=== PATIENT | female | born 1975 | race American Indian/Alaskan Native ===

== ENCOUNTER 2018-05-05 15:48 | Outpatient (CLI) | payer OTHER ==
[2018-05-05 17:44] VITALS: BP 95/54
--- NOTE | 2018-05-05 18:22 | Ultrasound Report ---
FINAL REPORT PROCEDURE: US OB LIMITED TECHNIQUE: Real-time limited sonographic examination was performed for evaluation of size, position, heartbeat, fluid volume for fetus with image documentation. HISTORY: well being KARSETN, position, deceleration. COMPARISON: Biophysical profile done same day and time on separate report. FINDINGS: MATERNAL LMP: 08/01/2017. Clinical age: 39 weeks 4 days. EDC: 05/08/2018. FETUS IUP: Single living intrauterine . Position: Cephalic. Amniotic fluid volume: 13.5 cm. Heart rate and rhythm: 158 BPM, regular. IMPRESSION: 1. Single living intrauterine gestation, by LMP 39 weeks 4 days with EDC of 05/08/2018. Cephalic position. KARSTEN is normal at 13.5 cm. heart rate 158 beats per minute.
--- NOTE | 2018-05-05 18:23 | Ultrasound Report ---
FINAL REPORT PROCEDURE: US OB BPP WO NON-STRESS TECHNIQUE: Sonographic evaluation for breathing, movement, tone, and amniotic fluid volume was performed. CPT 69719 HISTORY: well being, KARSTEN, position, decelerations. COMPARISON: Limited obstetric ultrasound dated same day and time on separate report. FINDINGS: MATERNAL LMP: 08/01/2017. Clinical age: 39 weeks 4 days. EDC: 05/08/2018. FETUS IUP: Single living intrauterine . Position: Cephalic. Amniotic fluid volume: 13.5 cm. Heart rate and rhythm: 158 BPM, regular. Amniotic fluid volume: Normal-score 2. At least one vertical pocket > 2 cm or more in vertical axis. breathing: Normal-score 2. movement: Normal-score 2. tone: Normal. Score: 8 of 8. IMPRESSION: Normal biophysical profile.
== END 2018-05-05 17:20 | disposition home or self-care (01) ==
LOC: TRG 15:48
PROVIDERS: ATTEND Obstetrics & Gynecology
DX: O47.1 False labor at or after 37 completed weeks of gestation (principal); Z3A.39 39 weeks gestation of pregnancy
CPT/HCPCS: 59025; 76815; 76819

== ENCOUNTER 2018-05-08 06:08 | Outpatient (CLI) | payer OTHER ==
--- NOTE | 2018-05-08 08:23 | Ultrasound Report ---
ULTRASOUND OB LIMITED History: presentation Technique: Transabdominal ultrasound with Doppler interrogation. Gestation: Single Position: Cephalic Heart Rate: 136 BPM Cervical length: The internal cervical os is dilated up to 1.9 cm.
== END 2018-05-08 08:40 | disposition home or self-care (01) ==
LOC: TRG 06:08
PROVIDERS: ATTEND Obstetrics & Gynecology
DX: O46.93 Antepartum hemorrhage, unspecified, third trimester (principal); O62.9 Abnormality of forces of labor, unspecified; Z3A.40 40 weeks gestation of pregnancy
CPT/HCPCS: 59025; 76815

== ENCOUNTER 2018-05-09 02:36 | Inpatient (IN) | payer OTHER ==
[2018-05-09] MEDS ORDERED: LACTATED RINGERS 1,000 ML ONE (03:25)
[2018-05-09] MEDS ORDERED: POLYCILLIN/NS 2 GM/100 ML 2 GM/100 ML BAG IV ONE (03:26)
[2018-05-09] MEDS ORDERED: BRETHINE SUB-Q PRN (03:26)
[2018-05-09] MEDS ORDERED: ePHEDrine SULFATE IV PRN (03:26)
[2018-05-09] MEDS ORDERED: XYLOCAINE 2% INFILTRATI ONE (03:26)
[2018-05-09] MEDS ORDERED: SUBLIMAZE IV PRN (03:26)
[2018-05-09 03:38] LABS: Hematocrit 42.5 % (30.3-42.9); Hemoglobin 14.5 gm/dl (10.1-14.3); Mean Corpuscular HGB Conc 34 % (30-34); Mean Corpuscular Hemoglobin 31 pg (28-32); Mean Corpuscular Volume 91 fl (79-97); Platelet Count 127 K/mm3 (140-440); Red Blood Count 4.66 M/mm3 (3.65-5.03); Red Cell Distribution Width 14.6 % (13.2-15.2)
--- NOTE | 2018-05-09 03:41 | History and Physical Report ---
History of Present Illness Date of examination: 05/09/18 Date of admission: 05/09/18 02:52 Chief complaint: Regular contractions History of present illness: 42 year old female presents to L&D with regular contractions. Patient states her contractions began at 4:00 PM today. Patient reports leaking of clear fluid from vagina which she states began within the past hour. Patient denies vaginal bleeding. Patient reports active movement. No records are available. Patient is a [place] patient. Patient states she has had an uneventful . EDC 05/08/18. EGA 40 weeks, 1 day gestation. Patient is taking vitamin daily. No other medications. NKDA. Patient denies health problems. Patient denies any history of surgeries. Patient reports 4 previous normal term vaginal births without complications. 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 denies: smoking, alcohol abuse, prescription drug abuse, IV drug use - Obstetrical History Expected Date of Delivery: 05/08/18 Actual Gestation: 40 Week(s) 1 Day(s) : 6 Para: 4 Hx # Term Pregnancies: 5 Number of Pregnancies: 0 Spontaneous Abortions: 1 Induced : 0 Number of Living Children: 4 Medications and Allergies Allergies Allergy/AdvReac Type Severity Reaction Status Date / Time No Known Allergies Allergy Verified 05/08/18 07:12 Home Medications Medication Instructions Recorded Confirmed Last Taken Type No Known Home Medications [No 05/05/18 05/05/18 Unknown History Reported Home Medications] Active Meds: Active Medications Ephedrine Sulfate (Ephedrine Sulfate) 10 mg IV Q2M PRN PRN Reason: Hypotension Fentanyl (Sublimaze) 100 mcg IV Q2H PRN PRN Reason: Labor Pain Ampicillin Sodium (Polycillin/Ns 2 Gm/100 Ml) 2 gm in 100 mls @ 100 mls/hr IV ONCE ONE; Protocol Stop: 05/09/18 04:25 Lactated Ringer's (Lactated Ringers) 1,000 mls @ 125 mls/hr IV DIRECT JG Oxytocin/Sodium Chloride (Pitocin/Ns 20 Unit/1000ml Drip) 20 units in 1,000 mls @ 125 mls/hr IV DIRECT JG Ampicillin Sodium (Ampicillin/Ns 1 Gm/50 Ml) 1 gm in 50 mls @ 100 mls/hr IV Q4H JG; Protocol Terbutaline Sulfate (Brethine) 0.25 mg SUB-Q ONCE PRN PRN Reason: Hyperstimulation/Hypertonicity Review of Systems All systems: negative (contractions and leaking of fluid from vagina) - Vital Signs Vital signs: Vital Signs Pulse Pulse Ox 68 97 05/09/18 03:36 05/09/18 03:36 Temp Pulse Resp BP Pulse Ox 71 73 L 05/09/18 03:38 05/09/18 03:38 - Physical Exam Breasts: Positive: deferred Cardiovascular: Regular rate, Normal S1, Normal S2 Lungs: Positive: Clear to auscultation Abdomen: Positive: normal appearance, soft. Negative: distention, tenderness, guarding, rigidity Genitourinary (Female): Positive: normal external genitalia, normal perenium. Negative: perineal/vulvar lesions (no lesions seen on careful exam with bright light) Vagina: Positive: other (clear watery vaginal discharge) Anus/Rectum: Positive: normal perianal skin Extremities: Positive: normal. Negative: tenderness, edema - Obstetrical FHR: category 2 Uterine Contraction Monitor Mode: External Cervical Dilatation: 6 Cervical Effacement Percentage: 100 station: -2 Uterine Contraction Frequency (min): every 3 to 5 minutes Uterine Contraction Pattern: Regular Uterine Contraction Intensity: Moderate Results All other labs normal. Assessment and Plan A: at 40 weeks, 1 day gestation. Unknown GBS status. No records available. SROM. P: Admit patient. Continuous EFM. GBS prophylaxis.
[2018-05-09] MEDS ORDERED: PITOCin/NS 20 UNIT/1000ML DRIP 20 UNITS/1,000 ML BAG IV SCH ×2 (04:00→07:00)
[2018-05-09] MEDS: LACTATED RINGERS 1,000 ML IV SCH ×5 (04:08→22:15)
--- NOTE | 2018-05-09 04:10 | Event Note ---
Date: 05/09/18 Variable FHR deceleration noted, lasting approximately 3 minutes, with return to normal FHR baseline; variability is moderate. FSE applied. Pt. positioned in left lateral position and oxygen applied per face mask at 10 LPM. Cervix is still 6 cm. Will observe closely. Will do amnioinfusion; orders placed. Informed Dr. Dumont of FHR tracing and interventions taken.
[2018-05-09] MEDS ORDERED: NACL 0.9% 1000 ML 1,000 ML VG SCH ×2 (05:00)
[2018-05-09 06:19] LABS: Hematocrit 40.3 % (30.3-42.9); Hemoglobin 13.8 gm/dl (10.1-14.3); Mean Corpuscular HGB Conc 34 % (30-34); Mean Corpuscular Hemoglobin 31 pg (28-32); Mean Corpuscular Volume 91 fl (79-97); Platelet Count 133 K/mm3 (140-440); Red Blood Count 4.42 M/mm3 (3.65-5.03); Red Cell Distribution Width 14.5 % (13.2-15.2)
--- NOTE | 2018-05-09 06:39 | Event Note ---
Date: 05/09/18 Patient has received epidural and is comfortable. Variable FHR decelerations noted, some prolonged, with normal FHR baseline rate and moderate variability. Instituted position change and applied O2 per face mask at [address] Dumont at 06:10 a.m. and informed her of deep variables and prolonged variables and FHR tracing with normal baseline rate and moderate variability. Dr. Dumont states to get pt. ready for a section. Notified nurse and charge nurse that Dr. Dumont suggests and is on her way in to hospital. Spoke with pt. about this also.
[2018-05-09] MEDS ORDERED: BICITRA PO NR (06:43)
[2018-05-09] MEDS ORDERED: REGLAN IV NR (06:43)
[2018-05-09] MEDS ORDERED: PEPCID IV NR (06:43)
[2018-05-09] MEDS ORDERED: LACTATED RINGERS 1,000 ML IV SCH (07:00)
--- NOTE | 2018-05-09 07:22 | Anesthesia Consultation ---
Anesthesia Consult and Med Hx Date of service: 05/09/18 - Airway Anesthetic Teeth Evaluation: Good ROM Head & Neck: Adequate Mental/Hyoid Distance: Adequate Mallampati Class: Class II Intubation Access Assessment: Probably Good - Pulmonary Exam CTA: Yes - Cardiac Exam Cardiac Exam: RRR - Pre-Operative Health Status ASA Pre-Surgery Classification: ASA2 Proposed Anesthetic Plan: Epidural - Pulmonary Hx Asthma: No COPD: No Hx Pneumonia: No - Cardiovascular System Hx Hypertension: No - Central Nervous System Hx Seizures: No Hx Psychiatric Problems: No - Endocrine Hx Renal Disease: No Hx End Stage Renal Disease: No Hx Hypothyroidism: No Hx Hyperthyroidism: No - Hematic Hx Anemia: No Hx Sickle Cell Disease: No - Other Systems Hx Alcohol Use: No
--- NOTE | 2018-05-09 07:23 | Anesthesia Day of Surgery ---
Anesthesia Day of Surgery - Day of Surgery Patient Examined: Yes Patient H&P Reviewed: Yes Patient is NPO: Yes
[2018-05-09] MEDS ORDERED: ceFAZolin 2 GM in NACL 0.9% 100 ML IV ONE (07:31)
[2018-05-09] MEDS ORDERED: WATER FOR IRRIG STERILE IR ONE (07:51)
[2018-05-09] MEDS ORDERED: NACL 0.9% IR ONE (07:51)
[2018-05-09] MEDS ORDERED: XYLOCAINE MPF 2% ONE (07:56)
[2018-05-09] MEDS ORDERED: ANCEF/STERILE WATER 2 GM/20 ML 2 GM/20 ML SYRINGE IV ONE (08:00)
[2018-05-09] MEDS ORDERED: AMPICILLIN/NS 1 GM/50 ML 1 GM/50 ML BAG IV SCH (08:00)
[2018-05-09] MEDS ORDERED: NEO SYNEPHRINE/NS Syringe(OR USE) IV ONE (08:23)
[2018-05-09] MEDS ORDERED: VERSED ONE (08:28)
[2018-05-09] MEDS ORDERED: ePHEDrine SULFATE ONE (08:31)
[2018-05-09] MEDS ORDERED: NACL 0.9% 500 ML 500 ML IV ONE (08:40)
[2018-05-09] MEDS ORDERED: NACL 0.9% 1000 ML 1,000 ML ONE (08:57)
[2018-05-09 09:08] LABS: Basophils % (Auto) 0.5 % (0.0-1.8); Eosinophils % (Auto) 0.1 % (0.0-4.3); Hematocrit 33.5 % (30.3-42.9); Hemoglobin 11.6 gm/dl (10.1-14.3); Lymphocytes # (Auto) 0.5 K/mm3 (1.2-5.4); Lymphocytes % (Auto) 7.1 % (13.4-35.0); Mean Corpuscular HGB Conc 35 % (30-34); Mean Corpuscular Hemoglobin 31 pg (28-32); Mean Corpuscular Volume 91 fl (79-97); Monocytes # (Auto) 0.5 K/mm3 (0.0-0.8); Monocytes % (Auto) 6.6 % (0.0-7.3); Platelet Count 111 K/mm3 (140-440); Red Cell Distribution Width 14.4 % (13.2-15.2)
--- NOTE | 2018-05-09 09:16 | Procedure Note ---
OB Delivery Note - Delivery Date of Delivery: 05/09/18 Surgeon: MARU GROSS Estimated blood loss: other (1800 mL) - Section Preop diagnosis: nonreassuring FHR tracing Postop diagnosis: same section procedure: section, primary low transverse Disposition: PACU Complications: intra-op hemorrhage, uterine atony Narrative: Please see operative report. - Infant A at 1 minute: 8 at 5 minutes: 9 Infant Gender: Male (3201g (7lb 1oz) @ 0812 am)
[2018-05-09 09:21] LABS: INR 0.98 (0.87-1.13)
[2018-05-09] MEDS ORDERED: ZOFRAN IV PRN (09:28)
[2018-05-09] MEDS ORDERED: BENADRYL IV PRN (09:28)
[2018-05-09] MEDS ORDERED: NARCAN 0.4 MG/1 ML IV PRN (09:28)
--- NOTE | 2018-05-09 09:28 | Operative Report ---
Operative Report Operative Report: Date of procedure: May 09, 2018 Preoperative diagnosis: 1) IUP at 40w1d 2) Nonreassuring hear tones 3) Obesity Postoperative diagnosis: Same 4) Uterine atony Procedure: Primary low transverse section Surgeon: Michelle Dumont M.D. Anesthesia: Epidural Findings: 1) Viable male , Apgars 8 and 9, weight 3201g, (7 lb 1 oz) in cephalic presentation. Nuchal cord x 1 2) Normal-appearing uterus ovaries and tubes Estimated blood loss: 1800 mL IV fluids: 2000 mL Urine output: 150 mL, clear at the end of the procedure Drains: Wooten to gravity Specimens: Placenta to pathology Complications: Counts correct x 3. Intrapartum hemorrhage. Uterine atony s/p additional 20 units of pitocin in IV fluids Disposition: Stable to PACU Indication for procedure: Pt is a 42 year old [place] female at 40w1d who presents in labor with rupture of membranes at 6 cm began to have deep repetitive variable decels despite amnioinfusion. The decision was made to proceed with primary section. Operation in detail: After the risks, benefits, alternatives and complications were explained to the patient she gave informed consent for the procedure. She was subsequently taken to the operating room where epidural anesthesia was noted to be adequate. She was subsequently placed in the dorsal supine position with leftward tilt and prepped and draped in a normal sterile fashion. heart tones were noted to be in the 155 prior to incision. A timeout was performed. A Pfannenstiel skin incision was made with the knife and carried down to the layer of the fascia with the Bovie. The fascia was incised in the midline and the fascial incision was extended bilaterally with the Bovie. Attention was then turned to the superior aspect of the incision which was grasped with two Kochers, tented up, and dissected off the rectus muscles. Attention was then turned to the inferior aspect of the incision which was grasped with two Kochers , tented up and dissected off the rectus muscles. The rectus muscles were then in the midline. The peritoneum was then entered bluntly. The peritoneal incision was extended with good visualization of the bladder. The peritoneal incision was then stretched. An Rhys self-retaining retractor was placed for visualization. The bladder blade was placed. The vesicouterine peritoneum was grasped with smooth pickups and incised with Metzenbaum scissors. Metzenbaum scissors were used to extend the incision bilaterally. The bladder flap was then created digitally and the bladder blade was replaced. A transverse incision was made in the lower uterine segment with a knife and extended bilaterally with the bandage scissors. The head was delivered without difficulty followed by shoulders and body. was bulb suctioned at delivery. The cord was clamped and cut and the was handed to NICU staff in attendance. Cord blood was collected. The placenta was then delivered manually. The uterus was then exteriorized and cleared of all clots and debris. The uterus was noted to be atonic and an additional 20 units of pitocin. Several large vessels were also noted The hysterotomy was then reapproximated with 0 Vicryl in a running locked fashion. A second layer of the same suture was used in imbricating fashion. Additional figure of eights of 2-0 and 3-0 Vicryl were used to obtain hemostasis at the apices of the inicision. The hysterotomy was inspected and hemostasis was noted. The Rhys self-retaining retractor was removed. The gutters were irrigated and cleared of all clots and debris. The hysterotomy was again inspected and noted to be hemostatic. Surgicel was placed over the hysterotomy. The peritoneum was reapproximated with 2-0 Vicryl in a running fashion incorporating the rectus muscles. The fascia was reapproximated with 0 Vicryl in a running fashion. The subcutaneous tissue was reapproximated with 2-0 Vicryl in a running fashion. The skin was reapproximated with 4-0 Vicryl in a subcuticular fashion. The incision was then covered with steri strips and a pressure dressing. The procedure was then ended. The patient tolerated the procedure well and was taken to the PACU in stable condition. All instrument, lap, and needle counts were correct 3. The patient will receive two units of blood. Administration of the first unit was initiated in the operating room.
[2018-05-09] MEDS ORDERED: MORPHINE ONE (09:29)
[2018-05-09] MEDS: MORPHINE PCA 30MG/30ML IV SCH (09:49)
[2018-05-09 18:42] LABS: Basophils % (Auto) 0.3 % (0.0-1.8); Eosinophils # (Auto) 0.1 K/mm3 (0.0-0.4); Eosinophils % (Auto) 1.1 % (0.0-4.3); Hematocrit 35.9 % (30.3-42.9); Hemoglobin 12.3 gm/dl (10.1-14.3); Lymphocytes # (Auto) 0.8 K/mm3 (1.2-5.4); Lymphocytes % (Auto) 8.6 % (13.4-35.0); Mean Corpuscular HGB Conc 34 % (30-34); Mean Corpuscular Hemoglobin 32 pg (28-32); Mean Corpuscular Volume 92 fl (79-97); Monocytes # (Auto) 0.5 K/mm3 (0.0-0.8); Monocytes % (Auto) 5.5 % (0.0-7.3); Red Blood Count 3.91 M/mm3 (3.65-5.03); Red Cell Distribution Width 14.3 % (13.2-15.2)
[2018-05-09 18:54] LABS: Platelet Count 94 K/mm3 (140-440)
[2018-05-10] MEDS: MORPHINE PCA 30MG/30ML IV SCH (02:50)
--- NOTE | 2018-05-10 09:37 | Progress Note ---
Assessment and Plan - Patient Problems (1) hemorrhage Current Visit: Yes Status: Acute Plan to address problem: s/p 1u pRBCs. Post-transfusion Hgb >12. Will monitor post-op recovery for signs of lightheaded, dizziness or headache. (2) Status post primary low transverse section Current Visit: Yes Status: Acute Plan to address problem: Encourage ambulation. Discontinue STAFF TOXICOLOGIST. Start PO narcotics. Advance diet as tolerated. (3) Thrombocytopenia Current Visit: Yes Status: Acute Plan to address problem: Asymptomatic. Hold NSAIDs. Repeat platelets in AM. No significant post-op bleeding noted. Subjective - Subjective Date of service: 05/10/18 Interval history: No flatus. No BM. Tolerating clears. Ambulating to restroom. STAFF TOXICOLOGIST in place. Patient reports: other ("I feel weak") Objective - Vital Signs Vital Signs: Vital Signs - 12hr 05/09/18 05/09/18 05/09/18 22:32 23:00 23:44 Temperature 99.7 F H Pulse Rate 85 Respiratory 18 18 18 Rate Blood Pressure Blood Pressure 112/72 [Left] O2 Sat by Pulse Oximetry 05/10/18 05/10/18 05/10/18 01:42 02:56 04:09 Temperature Pulse Rate Respiratory 18 18 18 Rate Blood Pressure Blood Pressure [Left] O2 Sat by Pulse Oximetry 05/10/18 05/10/18 04:50 05:20 Temperature 98.6 F Pulse Rate 75 Respiratory 18 18 Rate Blood Pressure 102/67 Blood Pressure [Left] O2 Sat by Pulse 98 Oximetry - Exam Abdomen: Present: soft, other (Dressings clean and dry) Vulva: both: normal (Minimal lochia) Uterus: Present: firm - Labs Labs: Abnormal Labs 05/09/18 05/09/18 05/09/18 03:07 05:54 05:56 WBC 11.1 H Hgb 14.5 H MCHC Plt Count 127 L 133 L Lymph % (Auto) Lymph # Seg Neutrophils % Seg Neutrophils # Crossmatch See Detail 05/09/18 05/09/18 09:04 17:58 WBC Hgb MCHC 35 H Plt Count 111 L 94 L Lymph % (Auto) 7.1 L 8.6 L Lymph # 0.5 L 0.8 L Seg Neutrophils % 85.7 H 84.5 H Seg Neutrophils # 7.9 H Crossmatch Laboratory Results - last 24 hr 05/09/18 05/09/18 05/09/18 03:07 05:54 05:56 WBC RBC Hgb Hct MCV MCH MCHC RDW Plt Count Lymph % (Auto) [place] % (Auto) Eos % (Auto) Baso % (Auto) Lymph # [place] # Eos # Baso # Seg Neutrophils % Seg Neutrophils # RPR Nonreactive Hep Bs Antigen Non-reactive Blood Type B POSITIVE Antibody Screen Negative Crossmatch See Detail 05/09/18 17:58 WBC 9.3 RBC 3.91 Hgb 12.3 Hct 35.9 MCV 92 MCH 32 MCHC 34 RDW 14.3 Plt Count 94 L Lymph % (Auto) 8.6 L [place] % (Auto) 5.5 Eos % (Auto) 1.1 Baso % (Auto) 0.3 Lymph # 0.8 L [place] # 0.5 Eos # 0.1 Baso # 0.0 Seg Neutrophils % 84.5 H Seg Neutrophils # 7.9 H RPR Hep Bs Antigen Blood Type Antibody Screen Crossmatch
[2018-05-10] MEDS: PERCOCET 5/325 PO PRN ×3 (13:07→23:51)
[2018-05-10] MEDS ORDERED: BENADRYL PO PRN (18:00)
[2018-05-10] MEDS ORDERED: BENADRYL PO ONE (18:28)
[2018-05-11 05:35] LABS: Hematocrit 31.9 % (30.3-42.9); Mean Corpuscular HGB Conc 34 % (30-34); Mean Corpuscular Hemoglobin 31 pg (28-32); Mean Corpuscular Volume 91 fl (79-97)
[2018-05-11 05:37] LABS: Platelet Count 95 K/mm3 (140-440)
[2018-05-11 05:45] LABS: INR 1.02 (0.87-1.13)
[2018-05-11 05:46] LABS: Partial Thromboplastin Time 30.8 Sec. (24.2-36.6)
[2018-05-11] MEDS: PERCOCET 5/325 PO PRN ×3 (07:00→22:52)
--- NOTE | 2018-05-11 11:17 | Progress Note ---
Assessment and Plan - Patient Problems (1) hemorrhage Onset Date: 05/11/18 Current Visit: Yes Status: Resolved Qualifiers: hemorrhage type: delayed hemorrhage Qualified Code(s) : O72.2 - Delayed and secondary hemorrhage Plan to address problem: A: S/P C Section - POD #2 Doing well Asymptomatic anemia - stable P: Anticipate discharge to home tomorrow. (2) Status post primary low transverse section Onset Date: 05/11/18 Current Visit: Yes Status: Resolved (3) Thrombocytopenia Onset Date: 05/11/18 Current Visit: Yes Status: Resolved Subjective - Subjective Date of service: 05/11/18 Principal diagnosis: s/p C Section - POD #2 Interval history: Pt is feeling well without complaints. Bleeding has improved. She is tolerating a reg diet without nausea or vomiting, ambulating and voiding without difficulty. Patient reports: other ("I feel weak"), no new complaints, no loss of fluid, no vaginal bleeding, no movement normal (+flatus), no contractions Objective - Vital Signs Vital Signs: Vital Signs - 12hr 05/10/18 05/11/18 05/11/18 23:30 00:10 07:52 Temperature 98.7 F 98.6 F Pulse Rate 78 83 Respiratory 16 20 Rate Blood Pressure 110/64 Blood Pressure 102/79 [Left] O2 Sat by Pulse 92 98 Oximetry - Exam Breasts: deferred Abdomen: Present: normal appearance, soft Uterus: Present: normal, firm, fundal height below umbilicus - Labs Labs: Abnormal Labs 05/09/18 05/09/18 05/09/18 03:07 05:54 05:56 WBC 11.1 H RBC Hgb 14.5 H MCHC Plt Count 127 L 133 L Lymph % (Auto) Lymph # Seg Neutrophils % Seg Neutrophils # Crossmatch See Detail 05/09/18 05/09/18 05/11/18 09:04 17:58 05:23 WBC RBC 3.50 L Hgb MCHC 35 H Plt Count 111 L 94 L 95 L Lymph % (Auto) 7.1 L 8.6 L Lymph # 0.5 L 0.8 L Seg Neutrophils % 85.7 H 84.5 H Seg Neutrophils # 7.9 H Crossmatch Laboratory Results - last 24 hr 05/11/18 05/11/18 05:23 05:23 WBC 10.1 RBC 3.50 L Hgb 11.0 Hct 31.9 MCV 91 MCH 31 MCHC 34 RDW 14.0 Plt Count 95 L PT 13.9 INR 1.02 APTT 30.8
[2018-05-11] MEDS ORDERED: DULCOLAX PR PRN (16:02)
[2018-05-11] MEDS: MYLICON PO PRN (16:53)
[2018-05-11] MEDS: SENOKOT PO SCH (22:52)
[2018-05-11] MEDS: MILK OF MAGNESIA PO PRN (22:53)
[2018-05-12] MEDS: PERCOCET 5/325 PO PRN ×3 (05:25→22:07)
[2018-05-12] MEDS: SENOKOT PO SCH (11:03)
[2018-05-12] MEDS: MILK OF MAGNESIA PO PRN (11:04)
[2018-05-12] MEDS: MYLICON PO PRN (11:05)
--- NOTE | 2018-05-12 14:08 | Progress Note ---
Assessment and Plan - Patient Problems (1) hemorrhage Onset Date: 05/11/18 Current Visit: Yes Status: Resolved Qualifiers: hemorrhage type: delayed hemorrhage Qualified Code(s) : O72.2 - Delayed and secondary hemorrhage (2) Status post primary low transverse section Onset Date: 05/11/18 Current Visit: Yes Status: Resolved Plan to address problem: A: S/P C Section - POD #3 Doing well Asymptomatic anemia - stable P: May go home tomorrow. (3) Thrombocytopenia Onset Date: 05/11/18 Current Visit: Yes Status: Resolved Subjective - Subjective Date of service: 05/12/18 Principal diagnosis: s/p C Section - POD #3 Interval history: Pt is feeling well without complaints. Bleeding has improved. She is tolerating a reg diet without nausea or vomiting, ambulating and voiding without difficulty. Patient reports: appetite normal, voiding normally, pain well controlled, flatus , ambulating normally, no dizzy ambulation, no nauseated : doing well, nursing well Objective - Vital Signs Latest vital signs: Vital Signs Temp Pulse Resp BP BP BP Pulse Ox 05/12/18 08:06 98.4 F 60 20 100/64 05/11/18 23:35 99.6 F 80 20 111/64 05/11/18 20:00 100.0 F H 101 H 20 125/74 05/11/18 15:59 99.0 F 77 20 118/80 98 Intake and Output 05/11/18 05/12/18 05/12/18 22:59 06:59 14:59 Intake Total 240 480 680 Balance 240 480 680 Intake: Oral 240 480 680 Other: Total, Intake Amount 240 240 240 Voiding Method Toilet # Voids 1 Void 1 1 1 - Exam Breasts: Present: deferred Cardiovascular: Present: Regular rate Lungs: Present: Clear to auscultation Abdomen: Present: normal appearance, soft Uterus: Present: normal, firm, fundal height below umbilicus Extremities: Present: normal Incision: Present: normal, dry, intact
--- NOTE | 2018-05-12 15:30 | Discharge Summary ---
Providers - Providers Date of Admission: 05/09/18 02:52 Date of discharge: 05/13/18 Attending physician: CARLOS CALLES Primary care physician: CARLOS CALLES Hospitalization Reason for admission: active labor, rupture of membranes, IUP at term Delivery: Procedure: section, primary low transverse Episiotomy: none Laceration: none Incision: normal, dry, intact, dressed Other procedures: none complications: transfusion Discharge diagnosis: IUP at term delivered baby: male Hospital course: Pt is a 42yo BF EDC 05/08/18; EGA 40 1/ weeks presented to L&D complaining of SROM and phuc, but developed a non-reassuring tracing, and was therefore delivered by C Section. EBL was 1800mls and she received 1 unit of blood raising her H/H to 11.0/31.9 By POD #2 she was tolerating a reg diet without nausea or vomiting, ambulating and voiding without difficulty. She will therefore be discharged to home on POD #4 in stable condition. Condition at discharge: Good Disposition: DC-01 TO HOME OR SELFCARE - Discharge Diagnoses (1) hemorrhage Status: Resolved Qualifiers: hemorrhage type: delayed hemorrhage Qualified Code(s) : O72.2 - Delayed and secondary hemorrhage (2) Status post primary low transverse section Status: Resolved (3) Thrombocytopenia Status: Resolved Plan - Discharge Medications Prescriptions: Ferrous Sulfate [Feosol 325 MG tab] 325 mg PO BID #60 tablet Ibuprofen [Motrin] 800 mg PO Q8HR PRN #30 tablet PRN Reason: Mild Pain Unrelieved By Apap oxyCODONE /ACETAMINOPHEN [Percocet 5/325 mg] 1 tab PO Q6HR PRN #30 tablet PRN Reason: Pain, Moderate (4-6) Vit Calc,Iron,Folic [ Vitamins] 1 each PO DAILY #30 tablet - Provider Discharge Summary Activity: routine, no sex for 6 weeks, no heavy lifting 4 weeks, no strenuous exercise Diet: routine Instructions: routine Additional instructions: [] Smoking cessation referral if applicable(refer to patient education folder for contact #) [] Refer to [facility]'s [facility] Booklet Call your doctor immediately for: * Fever > 100.5 * Heavy vaginal bleeding ( >1 pad per hour) * Severe persistent headache * Shortness of breath * Reddened, hot, painful area to leg or breast * Drainage or odor from incision. * Keep incision clean and dry at all times and follow doctor's instructions regarding bathing/showering - Follow up plan Follow up: CARLOS CALLES MD [Primary Care Provider] - 14 Days JACKIE CADET NP [Referring] - 7 Days
[2018-05-12] MEDS ORDERED: BOOSTRIX IM ONE (20:47)
[2018-05-13] MEDS: PERCOCET 5/325 PO PRN (04:58)
[2018-05-13 12:11] VITALS: BP 114/69
== END 2018-05-13 14:15 | disposition home or self-care (01) | DRG 765 ==
LOC: TRG 02:36 → LD 02:52 → OB 14:48
PROVIDERS: ADMIT Obstetrics & Gynecology; ATTEND Obstetrics & Gynecology
PROC: 10D00Z1 Extraction of Products of Conception, Low, Open Approach (ICD-10-PCS; principal; 2018-05-09)
PROC: 30233N1 Transfusion of Nonautologous Red Blood Cells into Peripheral Vein, Percutaneous Approach (ICD-10-PCS; 2018-05-09)
PROC: 3E0234Z Introduction of Serum, Toxoid and Vaccine into Muscle, Percutaneous Approach (ICD-10-PCS; 2018-05-12)
DX: O76 Abnormality in fetal heart rate and rhythm complicating labor and delivery (principal); O72.1 Other immediate postpartum hemorrhage; O99.12 Other diseases of the blood and blood-forming organs and certain disorders involving the immune mechanism complicating childbirth; Z3A.40 40 weeks gestation of pregnancy; Z37.0 Single live birth; Z23 Encounter for immunization; D69.6 Thrombocytopenia, unspecified; O90.81 Anemia of the puerperium; D64.9 Anemia, unspecified; O99.214 Obesity complicating childbirth; E66.9 Obesity, unspecified; O69.81X0 Labor and delivery complicated by cord around neck, without compression, not applicable or unspecified
CPT/HCPCS: 36415; 85025; 85027; 85610; 85730; 86592; 86706; 86762; 86850; 86900; 86901; 86920; 87806; 90471; 90715; 99211; G0463; J0290; J1200; J2250; J2270; J2370; J2590; J2765; J3010; J3105; J7030; J7120; P9016